=== PATIENT | female | born 1975 | race Caucasian/White ===

== ENCOUNTER 2020-11-14 10:53 | Emergency (ER) | payer OTHER ==
[~2020-11-14] VITALS: Ht 172.7 cm; Wt 83.9 kg
[~2020-11-14 10:53] MED LIST: CIPRO500 MG; CIPRO500 MG PO; PERCOCET 5/3251 TAB PO; ULTRACET
[2020-11-14] MEDS ORDERED: TAMS0.4C PO (21:31)
[2020-11-14] MEDS ORDERED: CIPROFLOXACIN500 MG PO (21:33)
== END 2020-11-14 21:40 | disposition home or self-care (01) ==
LOC: ER 10:53
DX: N20.0 Calculus of kidney (principal); R10.31 Right lower quadrant pain

== ENCOUNTER 2021-10-17 09:00 | Emergency (ER) | payer OTHER ==
[~2021-10-17] VITALS: Ht 172.7 cm; Wt 79.4 kg
[~2021-10-17 09:00] MED LIST changes: +CIPROFLOXACIN500 MG PO; +TAMS0.4C PO
== END 2021-10-17 12:17 | disposition home or self-care (01) ==
LOC: ER 09:00
DX: M25.551 Pain in right hip (principal); M79.604 Pain in right leg

== ENCOUNTER 2023-01-19 09:42 | Outpatient (CLI) | payer OTHER | END 2023-01-19 09:47 | disposition home or self-care (01) | LOC: RAD 09:42 | PROVIDERS: ATTEND Urology | DX: N20.0 Calculus of kidney (principal) ==